=== PATIENT | male | born 1950 | race Caucasian/White ===

== ENCOUNTER 2022-01-04 18:56 | Inpatient (IN) | payer MEDICARE, OTHER ==
[~2022-01-04] VITALS: Ht 177.8 cm; Wt 50.0 kg
[2022-01-04 20:13] LABS: HEMOGLOBIN 13.5 gm/dl (14.0-17.5); RED BLOOD COUNT 4.2 M/UL (4.20-5.50); WHITE BLOOD COUNT 8.3 K/UL (4.5-11.0)
[2022-01-04 20:35] LABS: BUN/CREATININE RATIO 24 (0-10)
[2022-01-05 03:26] LABS: HEMOGLOBIN 12.5 gm/dl (14.0-17.5); WHITE BLOOD COUNT 8.7 K/UL (4.5-11.0)
[2022-01-05 04:09] LABS: BUN/CREATININE RATIO 24 (0-10)
[2022-01-05] MEDS ORDERED: FLOMAX 0.4 MG0.4 MG PO (10:55)
[2022-01-05] MEDS ORDERED: HYDROCODON-ACE1 EAC6 PO (10:55)
[2022-01-05] MEDS ORDERED: WIXELA 500-501 EACH PO (10:55)
[2022-01-05] MEDS ORDERED: AZITHROMYCIN250 MG PO (10:56)
[2022-01-05] MEDS ORDERED: OMEPRAZOLE20 MG PO (10:56)
[2022-01-05] MEDS ORDERED: MIRALAX17 GM PO (10:56)
[2022-01-05] MEDS ORDERED: VITAMIN D325 MCG PO (10:57)
[2022-01-05] MEDS ORDERED: ONDANSETRON HCL8 MG PO (10:58)
[2022-01-05] MEDS ORDERED: MOXIFLOXACIN H400 MG PO (10:59)
[2022-01-05] MEDS ORDERED: BACLOFEN10 MG PO (10:59)
[2022-01-05] MEDS ORDERED: TOPAMAX 100 MG100 MG PO (11:08)
[2022-01-06] MEDS ORDERED: AMIKACIN S500 MG/2 M NEB (10:58)
[2022-01-07 02:18] LABS: HEMOGLOBIN 12.2 gm/dl (14.0-17.5); RED BLOOD COUNT 3.9 M/UL (4.20-5.50)
[2022-01-07 02:40] LABS: BUN/CREATININE RATIO 28 (0-10)
[2022-01-08 04:24] LABS: HEMOGLOBIN 12.4 gm/dl (14.0-17.5); RED BLOOD COUNT 3.92 M/UL (4.20-5.50)
[2022-01-08 04:28] LABS: WHITE BLOOD COUNT 9.7 K/UL (4.5-11.0)
[2022-01-08 04:47] LABS: BUN/CREATININE RATIO 20 (0-10)
[2022-01-08] MEDS ORDERED: MEGACE 400400 MG/10 PO (09:52)
[2022-01-08] MEDS ORDERED: ELIQUIS 5 MG TAB5 MG PO (09:52)
[2022-01-08] MEDS ORDERED: LOPRESSOR 25 MG25 MG PO (09:52)
[2022-01-08] MEDS ORDERED: THERAGRAN M TAB1 EA PO (09:52)
[2022-01-08] MEDS ORDERED: NICOTINE PATCH1 EAC2 TOP (09:52)
[2022-01-08] MEDS ORDERED: FLOMAX 0.4 MG0.4 MG PO (13:34)
== END 2022-01-08 15:25 | disposition home or self-care (01) | DRG 309 ==
LOC: ER1 18:56 → PROG CARE 22:54 → CDU 22:54 → PROG CARE 01-05 01:45
PROVIDERS: Family Medicine; Internal Medicine; Internal Medicine Infectious Disease; ADMIT Student in an Organized Health Care Education/Training Program
PROC: B24BZZZ Ultrasonography of Heart with Aorta (ICD-10-PCS; principal; 2022-01-05)
DX: I48.92 Unspecified atrial flutter (principal); B37.49 Other urogenital candidiasis; E44.0 Moderate protein-calorie malnutrition; Z68.1 Body mass index [BMI] 19.9 or less, adult; F11.20 Opioid dependence, uncomplicated; R64 Cachexia; I47.1 Supraventricular tachycardia; F17.210 Nicotine dependence, cigarettes, uncomplicated; I07.1 Rheumatic tricuspid insufficiency; I27.20 Pulmonary hypertension, unspecified; J43.9 Emphysema, unspecified; N40.0 Benign prostatic hyperplasia without lower urinary tract symptoms; Z71.6 Tobacco abuse counseling; Z79.01 Long term (current) use of anticoagulants
CPT/HCPCS: ECHO; 36415; 71045; 80053; 80061; 82550; 82553; 83605; 83735; 84439; 84443; 84484; 85025; 85610; 85730; 86140; 93005; 93306; 93312; 93320; 94664; 94760; 96361; 96374; 96375; 99285; J1200; J1644; J2250; J2270; J2405; J3260

== ENCOUNTER → 2022-01-23 | Outpatient (CLI) | payer MEDICARE, OTHER ==
[~2022-01-23] MED LIST: AMIKACIN S500 MG/2 M NEB; AZITHROMYCIN250 MG PO; BACLOFEN10 MG PO; ELIQUIS 5 MG TAB5 MG PO; FLOMAX 0.4 MG0.4 MG PO; HYDROCODON-ACE1 EAC6 PO; LOPRESSOR 25 MG25 MG PO; MEGACE 400400 MG/10 PO; MIRALAX17 GM PO; MOXIFLOXACIN H400 MG PO; NICOTINE PATCH1 EAC2 TOP; OMEPRAZOLE20 MG PO; ONDANSETRON HCL8 MG PO; THERAGRAN M TAB1 EA PO; TOPAMAX 100 MG100 MG PO; VITAMIN D325 MCG PO; WIXELA 500-501 EACH PO
== END ==
LOC: HEART 5 10:08
DX: J44.9 Chronic obstructive pulmonary disease, unspecified (principal); R94.2 Abnormal results of pulmonary function studies
CPT/HCPCS: 94060; 94729